=== PATIENT | male | born 1975 | race Caucasian/White ===

== ENCOUNTER 2016-08-18 12:51 | Emergency (ER) | payer BC ==
[2016-08-18 13:21] VITALS: RESP 18
--- NOTE | 2016-08-18 14:30 | ED ---
General Adult HPI - General Chief complaint: Recheck/Abnormal Lab/Rx Stated complaint: Arm/Hand Numbness Time Seen by Provider: 08/18/16 13:24 Source: patient, RN notes reviewed Mode of arrival: ambulatory Limitations: no limitations - History of Present Illness Initial comments: 41-year-old male presents emergency department recheck abnormal symptoms. Patient states that he's been having on and off issues for last few months and which she states she gets a warm feeling starts becoming very shaky and very anxious. Patient states he gets some numbness in his hands. Patient states that occasionally feels like his heart is racing and skipping a beat. Patient states that his been having episodes more frequently. Patient states originally thought it was related to a singular stop it states it made symptoms worse. Patient saw primary care physician yesterday who ordered lab work, EKG and stress test. Patient is pending lab work EKG within normal limits. Patient states he has no known cardiac issues. Patient states he has seasonal ALLERGIES and which she takes Singulair for. Patient states he does not have anxiety that he states in the last month symptoms have gotten much worse and states this is from and switching shifts to working days compared afternoons. He states his home more often with the kids, family states that he does notice that he is stressed. Patient denies any depression or suicidal thoughts. Patient has not taken any medications for this. - Related Data Home Medications Medication Instructions Recorded Confirmed Albuterol Inhaler [Ventolin Hfa 1 - 2 puff INHALATION Q6HR PRN 08/18/16 08/18/16 Inhaler] Albuterol Nebulized [Ventolin 2.5 mg INHALATION Q4H PRN 08/18/16 08/18/16 Nebulized] Fish Oil/Dha/Epa [Fish Oil 1,200 1 cap PO DAILY 08/18/16 08/18/16 mg Fish Oil] Mometasone/Formoterol [Dulera 200 1 puff INHALATION BID 08/18/16 08/18/16 Mcg/5 Mcg Inhaler] Montelukast [Singulair] 10 mg PO HS 08/18/16 08/18/16 Multivitamin [Men's Multi-Vitamin] 1 tab PO DAILY 08/18/16 08/18/16 Previous Rx's Medication Instructions Recorded ALPRAZolam [Xanax] 0.5 mg PO BID PRN #14 tablet 08/18/16 Allergies Allergy/AdvReac Type Severity Reaction Status Date / Time No Known Allergies Allergy Verified 08/18/16 13:49 Review of Systems ROS Statement: Those systems with pertinent positive or pertinent negative responses have been documented in the HPI. ROS Other: All systems not noted in ROS Statement are negative. Past Medical History Past Medical History: Asthma History of Any Multi-Drug Resistant Organisms: None Reported Past Surgical History: Hernia Repair Additional Past Surgical History / Comment(s): rotater cuff knee Past Psychological History: No Psychological Hx Reported Smoking Status: Never smoker Past Alcohol Use History: Rare Past Drug Use History: None Reported General Exam Limitations: no limitations General appearance: alert, in no apparent distress Head exam: Present: atraumatic, normocephalic, normal inspection Eye exam: Present: normal appearance, PERRL, EOMI. Absent: scleral icterus, conjunctival injection, periorbital swelling ENT exam: Present: normal exam, normal oropharynx, mucous membranes moist Neck exam: Present: normal inspection, full ROM. Absent: tenderness, meningismus, lymphadenopathy Respiratory exam: Present: normal lung sounds bilaterally. Absent: respiratory distress, wheezes, rales, rhonchi, stridor Cardiovascular Exam: Present: regular rate, normal rhythm, normal heart sounds. Absent: systolic murmur, diastolic murmur, rubs, gallop, clicks GI/Abdominal exam: Present: soft, normal bowel sounds. Absent: distended, tenderness, guarding, rebound, rigid Neurological exam: Present: alert, oriented X3, CN II-XII intact Skin exam: Present: warm, dry, intact, normal color. Absent: rash Course Vital Signs 08/18/16 08/18/16 13:17 16:00 Temperature 98.3 F Pulse Rate 93 69 Respiratory 18 18 Rate Blood Pressure 138/81 111/79 O2 Sat by Pulse 98 98 Oximetry - Reevaluation(s) Reevaluation #1: 08/18/16 14:30 We did attempt to contact Dr. Bell's office for lab results. Has been more than 45 minutes with no results. I did explain this patient and which withdrawal lab work at this time pending results coming from Dr. Bell's office. Medical Decision Making - Medical Decision Making 41-year-old male presented for anxiety type symptoms. Patient lab work within normal limits. We were unable to obtain labs from Dr. Bell's office. Patient will be discharged with Xanax at this time to take if symptoms arise. Return parameters were discussed. - Lab Data Result diagrams: 08/18/16 14:55 08/18/16 14:55 Lab Results 08/18/16 08/18/16 08/18/16 Range/Units 14:55 14:55 14:55 WBC 7.4 (3.8-10.6) k/uL RBC 5.21 (4.30-5.90) m/uL Hgb 15.2 (13.0-17.5) gm/dL Hct 44.5 (39.0-53.0) % MCV 85.4 (80.0-100.0) fL MCH 29.2 (25.0-35.0) pg MCHC 34.2 (31.0-37.0) g/dL RDW 12.8 (11.5-15.5) % Plt Count 287 (150-450) k/uL Neutrophils % 72 % Lymphocytes % 17 % Monocytes % 5 % Eosinophils % 3 % Basophils % 1 % Neutrophils # 5.3 (1.3-7.7) k/uL Lymphocytes # 1.2 (1.0-4.8) k/uL Monocytes # 0.4 (0-1.0) k/uL Eosinophils # 0.2 (0-0.7) k/uL Basophils # 0.0 (0-0.2) k/uL Sodium 142 (137-145) mmol/L Potassium 4.5 (3.5-5.1) mmol/L Chloride 102 (98-107) mmol/L Carbon Dioxide 27 (22-30) mmol/L Anion Gap 13 mmol/L BUN 11 (9-20) mg/dL Creatinine 0.82 (0.66-1.25) mg/dL Est GFR (MDRD) Af Amer >60 (>60 ml/min/1.73 sqM) Est GFR (MDRD) Non-Af >60 (>60 ml/min/1.73 sqM) Glucose 104 H (74-99) mg/dL Calcium 9.9 (8.4-10.2) mg/dL Total Bilirubin 0.7 (0.2-1.3) mg/dL AST 21 (17-59) U/L ALT 38 (21-72) U/L Alkaline Phosphatase 57 (38-126) U/L Troponin I <0.012 (0.000-0.034) ng/mL Total Protein 7.6 (6.3-8.2) g/dL Albumin 4.7 (3.5-5.0) g/dL TSH 1.280 (0.465-4.680) mIU/L Disposition Clinical Impression: Panic attack Disposition: HOME SELF-CARE Condition: Stable Instructions: Anxiety (ED) Additional Instructions: Please return to the Emergency Department if symptoms worsen or any other concerns. Prescriptions: ALPRAZolam [Xanax] 0.5 mg PO BID PRN #14 tablet PRN Reason: Anxiety Time of Disposition: 16:32
[2016-08-18 15:24] LABS: Basophils % (A) 1 %; CH 29.9; CHCM 35.1; Eosinophils # (A) 0.2 k/uL (0-0.7); Eosinophils % (A) 3 %; HCT 44.5 % (39.0-53.0); HDW 2.63; HGB 15.2 gm/dL (13.0-17.5); Luc # (Auto) 0.18; Luc % (Auto) 2; Lymphocytes # (A) 1.2 k/uL (1.0-4.8); Lymphocytes % (A) 17 %; MCH 29.2 pg (25.0-35.0); MCHC 34.2 g/dL (31.0-37.0); MCV 85.4 fL (80.0-100.0); Mean Platelet Volume 7.2; Monocytes # (A) 0.4 k/uL (0-1.0); Monocytes % (A) 5 %; Neutrophils # (A) 5.3 k/uL (1.3-7.7); Neutrophils % (A) 72 %; RBC 5.21 m/uL (4.30-5.90); RDW 12.8 % (11.5-15.5); WBC 7.4 k/uL (3.8-10.6)
[2016-08-18 15:27] LABS: ALT 38 U/L (21-72); AST 21 U/L (17-59); Alkaline Phosphatase 57 U/L (38-126); Anion Gap 13 mmol/L; Blood Urea Nitrogen 11 mg/dL (9-20); Calcium 9.9 mg/dL (8.4-10.2); Carbon Dioxide 27 mmol/L (22-30); Chloride 102 mmol/L (98-107); Glucose 104 mg/dL (74-99); Non-African American GFR(MDRD) >60 (>60 ml/min/1.73 sqM); Potassium 4.5 mmol/L (3.5-5.1); Sodium 142 mmol/L (137-145); Total Bilirubin 0.7 mg/dL (0.2-1.3); Total Protein 7.6 g/dL (6.3-8.2)
[2016-08-18 16:01] VITALS: PULSE 69
[2016-08-18 16:50] VITALS: BP 115/80; TEMP 97
== END 2016-08-18 16:50 | disposition home or self-care (01) ==
LOC: EC 12:51
DX: F41.0 Panic disorder [episodic paroxysmal anxiety] (principal); J45.909 Unspecified asthma, uncomplicated
CPT/HCPCS: 36415; 80053; 84443; 84484; 85025; 99284

== ENCOUNTER → 2016-08-28 | Outpatient (CLI) | payer BC ==
--- NOTE | 2016-08-29 10:30 | ECHOF ---
Referral Reason:R00.2 Palpitations MEASUREMENTS -------- HEIGHT: 182.9 cm WEIGHT: 83.9 kg BP: RVIDd: 2.8 cm (< 3.3) IVSd: 1.0 cm (0.6 - 1.1) LVIDd: 4.4 cm (3.9 - 5.3) LVPWd: 1.3 cm (0.6 - 1.1) IVSs: 1.6 cm LVIDs: 2.8 cm LVPWs: 1.7 cm Ao Diam: 3.2 cm (2.0 - 3.7) AV Cusp: 2.1 cm (1.5 - 2.6) LA Diam: 2.5 cm (2.7 - 3.8) MV EXCURSION: 7.809 mm (> 18.000) MV EF SLOPE: 98 mm/s (70 - 150) EPSS: 0.7 cm MV E Rah: 0.74 m/s MV DecT: 228 ms MV A Rah: 0.60 m/s MV E/A Ratio: 1.23 RAP: 5.00 mmHg RVSP: 18.11 mmHg FINDINGS -------- Sinus rhythm. This was a technically good study. Left ventricular wall thickness is normal. Overall left ventricular systolic function is normal with, an EF between 55 - 60 %. The right ventricle is normal in size and function. The left atrium is normal in size. The right atrium is normal in size. The aortic valve is trileaflet, and appears structurally normal. No aortic stenosis or regurgitation. There is trace mitral regurgitation. Trace tricuspid regurgitation present. The right ventricular systolic pressure, as measured by Doppler, is 18.11mmHg. Pulmonic valve appears structurally normal. The aortic root size is normal. The pericardium is normal. CONCLUSIONS -------- 1. Sinus rhythm. 2. Trace tricuspid regurgitation present. 3. The right ventricular systolic pressure, as measured by Doppler, is 18.11mmHg. 4. Pulmonic valve appears structurally normal. 5. The aortic root size is normal. 6. The pericardium is normal. 7. This was a technically good study. 8. Left ventricular wall thickness is normal. 9. Overall left ventricular systolic function is normal with, an EF between 55 - 60 %. 10. The right ventricle is normal in size and function. 11. The left atrium is normal in size. 12. The right atrium is normal in size. 13. The aortic valve is trileaflet, and appears structurally normal. No aortic stenosis or regurgitation. 14. There is trace mitral regurgitation. AUTOMATION ANALYST: Rachna Pedro RDCS
== END | disposition home or self-care (01) ==
LOC: RADNMMAIN 12:48
PROVIDERS: ATTEND Family Medicine
DX: I08.1 Rheumatic disorders of both mitral and tricuspid valves (principal)
CPT/HCPCS: 93225; 93226; 93306

== ENCOUNTER → 2016-09-06 | Outpatient (CLI) | payer BC ==
--- NOTE | 2016-09-06 11:57 | EST ---
DATE OF SERVICE: 09/06/2016 AGE: 41Y SEX: M HT: 72" WT: lbs. Protocol Tommie: X Other: Stress Stage: IV Dur. of Exercise: 10:29 *Heart Rate Blood Pressure *Rest: 98 Rest: 143/89 * *Max. Achieved: 176 Maximum BP: 166/89 85% PMHR: 159 100% PMHR: 179 *METS: 12.8 INDICATIONS: Chest pain. MEDICATIONS: Dulera, albuterol, Singulair. STRESS DATA: Pretesting physical examination showed heart rate of 98, pressure is 143/89 mmHg. Baseline EKG showed sinus rhythm. The patient exercised on the treadmill according to Tommie protocol for a total of 10 minutes and 29 seconds and achieved 12.8 METs. The max heart rate was 176, which is about 98% of maximum predicted heart rate. Maximum blood pressure was 166/89 mmHg. Clinically, the patient did not have any symptoms of chest or discomfort and the EKG did not show any significant ST or T-wave abnormalities consistent with ischemia. CONCLUSION: 1. Excellent exercise capacity. 2. Normal EKG in response to exercise. 3. Normal exercise treadmill stress test for the patient.
== END | disposition home or self-care (01) ==
LOC: RADNMMAIN 10:30
PROVIDERS: ATTEND Family Medicine
DX: R07.9 Chest pain, unspecified (principal)
CPT/HCPCS: 93017

== ENCOUNTER → 2017-08-16 | Outpatient (CLI) | payer BC ==
--- NOTE | 2017-08-16 18:48 | XR ---
EXAMINATION TYPE: XR chest 2V DATE OF EXAM: 08/16/2017 COMPARISON: 05/20/2009 HISTORY: Difficulty breathing and chest pain TECHNIQUE: Frontal and lateral views of the chest are obtained. FINDINGS: Heart and mediastinum are normal. Lungs are clear. Diaphragm is normal. Bony thorax appear s normal. IMPRESSION: Normal chest. No change.
== END | disposition home or self-care (01) ==
LOC: RADXRMAIN 17:04
PROVIDERS: ATTEND Family Medicine
DX: R07.9 Chest pain, unspecified (principal)
CPT/HCPCS: 71046

== ENCOUNTER 2017-11-21 08:17 | Day surgery (SDC) | payer BC ==
[2017-11-16 15:32] VITALS: BMI 23.1
--- NOTE | 2017-11-21 08:11 | P.OP ---
Date of Procedure: 11/21/17 Procedure(s) Performed: Preoperative Dx: Dysphagia, history of esophageal stricture Postoperative Dx: Recurrent esophageal stricture/distal esophagitis/hiatal hernia Procedure: EGD with Bx and dilation of esophageal stricture Anesthesia: Sedation Endoscopist: Dr. Woods Specimens: GE junction/stricture, antrum Endoscopic Procedure: The patient was on the endoscopy table in the left decubitus position. The Olympus gastroscope was inserted into the oropharynx and passed under direct visualization to the distal esophagus. The patient had evidence of scarring of the mucosa but he was also found to have a tight stricture in the distal esophagus. I would estimate the luminal diameter at that location to be approximately 7 mm. I was able to advance a 8-10 mm balloon through the stricture site. Insufflation gradually took place holding the balloon at 8, 9, and 10 mm for 1 minute increments. Minimal bleeding was seen during this. The 8 mm balloon actually felt relatively loose after inflating. I was then able to pass through the stricture site into the stomach and into the duodenum. No abnormalities of the duodenum were identified. The stomach was relatively normal during his well. I did take a biopsy of the antrum. Retroflexion revealed a small hiatal hernia. At the GE junction is where the stricture was located and several biopsies of the stricture site were taken. The proximal esophagus appeared normal. The patient was then taken to the recovery room in stable condition per anesthesia guidelines. Recommendations: Await biopsy results. Continue antiacid therapy. Will require follow-up EGD with dilation in 1 month. Disposition: observation
[~2017-11-21 08:17] MED LIST: LACTATED RINGERS 1,000 ML IV SCH
[2017-11-21 08:54] VITALS: RESP 18; TEMP 98.3
[2017-11-21] MEDS ORDERED: LIDOCAINE 1% 20 ML VIAL (10MG/ML) FOR IV START INTRADERMA ONE (08:54)
[2017-11-21] MEDS ORDERED: PROPOFOL 10 MG/ML 20 ML VIAL IV ONE (09:07)
[2017-11-21] MEDS ORDERED: GLYCOPYRROLATE 0.2 MG/ML 2 ML VIAL ONE (09:07)
[2017-11-21] MEDS ORDERED: LIDOCAINE 1% INJ 10MG/ML (20 ML MDV) ONE (09:07)
--- NOTE | 2017-11-21 09:13 | P.GSHP ---
History of Present Illness H&P Date: 11/21/17 Chief Complaint: Dysphagia Patient known from our office. Was last seen in September. Has complaints of some dysphagia symptoms. Some asthma related symptoms as well. No recent upper endoscopy. Ran out of his antiacids about 3 weeks ago. Past Medical History Past Medical History: Asthma, GERD/Reflux History of Any Multi-Drug Resistant Organisms: None Reported Past Surgical History: Hernia Repair Additional Past Surgical History / Comment(s): RT rotater cuff, RT knee SX FOR BONE SPUR, EXPLORATORY SX FOR UNDESCENDED TESTICLE Past Anesthesia/Blood Transfusion Reactions: No Reported Reaction Past Psychological History: No Psychological Hx Reported Smoking Status: Former smoker Past Alcohol Use History: Rare Additional Past Alcohol Use History / Comment(s): quit smoking 2016, smoked less than 1/2ppd from age 20 Past Drug Use History: None Reported - Past Family History Mother Family Medical History: No Reported History Medications and Allergies Home Medications Medication Instructions Recorded Confirmed Type Albuterol Inhaler [Ventolin Hfa 1 - 2 puff INHALATION Q6HR PRN 08/18/16 History Inhaler] Albuterol Nebulized [Ventolin 2.5 mg INHALATION Q4H PRN 08/18/16 11/16/17 History Nebulized] Fish Oil/Dha/Epa [Fish Oil 1,200 1 cap PO DAILY 08/18/16 11/16/17 History mg Fish Oil] Montelukast [Singulair] 10 mg PO HS 08/18/16 11/16/17 History Multivitamin [Men's Multi-Vitamin] 1 tab PO DAILY 08/18/16 11/16/17 History Allergies Allergy/AdvReac Type Severity Reaction Status Date / Time No Known Allergies Allergy Verified 11/16/17 15:26 Surgical - Exam Vital Signs Temp Pulse Resp BP Pulse Ox 98.3 F 64 18 120/80 97 11/21/17 08:51 11/21/17 08:51 11/21/17 08:51 11/21/17 08:51 11/21/17 08:51 Physical exam: General: Well-developed, well-nourished HEENT: Normocephalic, sclerae nonicteric Abdomen: Nontender, nondistended Extremities: No edema Neuro: Alert and oriented Assessment and Plan (1) Dysphagia Narrative/Plan: Will proceed with upper endoscopy at this time. Current Visit: Yes Status: Acute Code(s): R13.10 - DYSPHAGIA, UNSPECIFIED SNOMED Code(s): 83190060
--- NOTE | 2017-11-21 09:22 | P.PCN ---
Date of Procedure: 11/21/17 Procedure(s) Performed: Preoperative Dx: Dysphagia Postoperative Dx: Mild gastritis, mild distal esophagitis, whitish plaques midesophagus rule out fungal esophagitis Procedure: EGD with Bx Anesthesia: Sedation Endoscopist: Dr. Woods Specimens: Antrum, GE junction, midesophagus Endoscopic Procedure: The patient was on the endoscopy table in the left decubitus position. The Olympus gastroscope was inserted into the oropharynx and passed under direct visualization to the region of the third portion of the duodenum. From that point the scope was slowly withdrawn inspecting all surfaces carefully. There were no neoplastic inflammatory or polypoid lesions throughout the duodenum. The pylorus was widely patent. The stomach was carefully inspected. There was minimal gastritis present. A biopsy of the antrum took place to rule out H. pylori. Retroflexion revealed a normal hiatus. The esophagus was then carefully examined. There was mild esophagitis present right at the GE junction circumferentially. This did not appear to be forming a definitive stricture. A biopsy of the esophagitis took place. Throughout the remainder of the esophagus there were small whitish plaques seen scattered. I suspect possible fungal esophagitis. Biopsies were taken of these areas. The patient was then taken to the recovery room in stable condition per anesthesia guidelines. Recommendations: Await biopsies results. Empirically begin nystatin treatment. Resume antiacids.
[2017-11-21 10:00] VITALS: BP 113/80; PULSE 67
== END 2017-11-21 10:15 | disposition home or self-care (01) ==
LOC: ORWHC2ENDO 08:17
PROVIDERS: ATTEND Surgery
DX: K29.50 Unspecified chronic gastritis without bleeding (principal); B37.81 Candidal esophagitis; J45.909 Unspecified asthma, uncomplicated; Z79.899 Other long term (current) drug therapy; Z87.891 Personal history of nicotine dependence
CPT/HCPCS: 88305; 43239; J2001; J2704

== ENCOUNTER → 2020-10-01 | Outpatient (CLI) | payer BC ==
--- NOTE | 2020-10-01 12:35 | XR ---
EXAMINATION TYPE: XR abdomen complete w decub DATE OF EXAM: 10/01/2020 CLINICAL HISTORY: Left lower quadrant pain for weeks, history of hernia surgery TECHNIQUE: Supine, upright, and left side down lateral decubitus views of the abdomen are obtained. COMPARISON: None. FINDINGS: Scattered gas is seen in non-distended stomach and small bowel loops. Gas and fecal mater ial is seen in non-distended colon. There is no visceromegaly, pneumoperitoneum, or abnormal calcif ication appreciated. The lung bases are clear. Slight scoliotic curvature of the lumbosacral junctio n with sacralized left L5 segment. IMPRESSION: Overall nonobstructive bowel gas pattern.
== END ==
LOC: RADXRMAIN 10:07
PROVIDERS: ATTEND Nurse Practitioner
DX: R10.32 Left lower quadrant pain (principal)
CPT/HCPCS: 74021

== ENCOUNTER → 2021-07-15 | Outpatient (CLI) | payer BC ==
[~2021-07-15] MED LIST changes: +BAMLANIVIMAB (EUA) 700 MG, ETESEVIMAB (EUA) 1,400 MG in SODIUM CHLORIDE 0.9% 50 ML IVPB ONE; -LACTATED RINGERS 1,000 ML IV SCH; +SODIUM CHLORIDE 0.9% 50 ML IVPB ONE; +SODIUM CHLORIDE 0.9% 500 ML 500 ML in EMPTY BAG 1 BAG IV PRN
[2021-07-15 13:52] VITALS: RESP 16; TEMP 98.4
[2021-07-15 14:46] VITALS: BP 131/91; PULSE 86
== END ==
LOC: PROCWHC3 13:45
PROVIDERS: ATTEND Family Medicine
DX: U07.1 COVID-19 (principal); E66.9 Obesity, unspecified; J45.909 Unspecified asthma, uncomplicated; Z68.25 Body mass index [BMI] 25.0-25.9, adult; Z87.891 Personal history of nicotine dependence
CPT/HCPCS: 96360; J3490; M0245

== ENCOUNTER → 2023-09-19 | Outpatient (CLI) | payer BC ==
--- NOTE | 2023-09-19 12:18 | US ---
EXAMINATION TYPE: US abdomen complete DATE OF EXAM: 09/19/2023 COMPARISON: NONE CLINICAL INDICATION: Male, 48 years old with history of R10.9 ABD PAIN; Patient states epigastric pa in that comes and goes. No other pain or symptoms. TECHNIQUE: Multiple sonographic images of the abdomen are obtained. FINDINGS: EXAM MEASUREMENTS: Liver Length: 15.2 cm Gallbladder Wall: 0.3 cm CBD: 0.2 cm Spleen: 12.6 cm Right Kidney: 11.0 x 4.7 x 5.1 cm Left Kidney: 11.8 x 5.3 x 5.1 cm AIRPLANE TUBE BUILDER NOTES: *Limited visualization due to overlying bowel gas Pancreas: Obscured by bowel gas Liver: There is a 3.1 x 2.1 x 3.4cm anechoic lesion seen within the left liver lobe. Right lobe appe ars WNL Gallbladder: Multiple, small hyperechoic areas seen to be projecting from GB wall. Largest measures 0.5 x 0.5 x 0.4cm. Evidence for sonographic Acevedo's sign: No CBD: wnl as best seen Spleen: wnl as best seen Right Kidney: No hydronephrosis or masses seen as best visualized Left Kidney: No hydronephrosis or masses seen as best visualized Upper IVC: wnl as best visualized Abd Aorta: wnl as best visualized IMPRESSION: 1. Scattered gallbladder polyps measuring up to 5 mm in diameter. No evidence of cholelithiasis or ch olecystitis. 2. No evidence of biliary ductal dilation. 3. No evidence of hydronephrosis.
--- NOTE | 2023-09-19 15:41 | US ---
EXAMINATION TYPE: US groin LT DATE OF EXAM: 09/19/2023 COMPARISON: NONE CLINICAL INDICATION: Male, 48 years old with history of Z98.890 OTHER SPECIFIED POSTPROCEDURAL R10.9; Patient states hx of left inguinal hernia repair 14 years ago. Patient is having on and off LLQ pain . TECHNIQUE: Scanned left groin, AOC FINDINGS: Field Property Loss Specialist notes: Left groin AOC scanned, few prominent lymph nodes seen. Probable scar t issue noted. No distinct evidence of inguinal hernia on today's exam. Right groin scanned for comparison. IMPRESSION: Real-time scanning by the television schedule coordinator shows a shadowing area at the left groin area of concern which may reflect scar tissue in the setting of previous surgery. No abnormal bulge or moving tissue is yissel ntified by the television schedule coordinator upon Valsalva maneuver. A few prominent but nonenlarged lymph nodes are no bailey, likely reactive/post inflammatory.
== END | disposition home or self-care (01) ==
LOC: RADUSWWP 06:53
PROVIDERS: ATTEND Family Medicine
DX: K82.4 Cholesterolosis of gallbladder (principal); Z98.890 Other specified postprocedural states
CPT/HCPCS: 76700

== ENCOUNTER → 2023-10-05 | Outpatient (CLI) | payer BC ==
--- NOTE | 2023-10-05 14:12 | CT ---
EXAMINATION: CT ABDOMEN AND PELVIS WITH IV CONTRAST DATE OF EXAMINATION: 10/05/2023. COMPARISON: None available. INDICATION: Left-sided abdominal pain. PROCEDURE: Axial CT of the abdomen and pelvis was performed with contrast and sagittal and coronal reformatted images were performed. CT dose lowering techniques were used, to include: automated expos ure control, adjustment for patient size, and/or use of iterative reconstruction. 100 mL of Isovue 30 0 was given intravenously. FINDINGS: LOWER CHEST : The visualized lung bases are clear. There are no pleural or pericardial effusions. ABDOMEN: Liver and Biliary system: Several cysts and subcentimeter hypodensities are seen within the liver th at are too small to fully characterize. Adrenal glands: Normal. Kidneys and ureters: Normal. Spleen: Normal. Pancreas: Normal. Gallbladder: Normal. Lymph nodes, Peritoneum and mesentery: There is no mesenteric or retroperitoneal lymphadenopathy. Gastrointestinal tract: There are no dilated loops of bowel or free intraperitoneal air. The appe ndix is normal. Aorta/IVC: No aortic aneurysm. IVC normal. Abdominal wall: Normal. PELVIS: Fluid: There is no free fluid in the pelvis. Lymph Nodes: There is no pelvic or inguinal lymphadenopathy.. Urinary bladder: Normal. BONES: There are no osseous destructive lesions.. ADDITIONAL SIGNIFICANT FINDINGS: None. IMPRESSION: No acute process within the abdomen or pelvis.
== END | disposition home or self-care (01) ==
LOC: RADCTMAIN 11:47
PROVIDERS: ATTEND Family Medicine
DX: K76.9 Liver disease, unspecified (principal); R10.9 Unspecified abdominal pain
CPT/HCPCS: 74178; Q9967

== ENCOUNTER → 2023-10-31 | Outpatient (CLI) | payer BC ==
[2023-10-31 15:51] LABS: ALT 26 U/L (10-49); AST 20 U/L (14-35); Albumin 4.7 g/dL (3.8-4.9); Albumin/Globulin Ratio 1.88 Ratio (1.60-3.17); Alkaline Phosphatase 66 U/L (41-126); Bilirubin, Conjugated <0.20 mg/dL (0.20-0.40); Bilirubin,Unconjugated >0.30 mg/dL (0.20-1.00); Globulin 2.5 g/dL (1.6-3.3); Total Bilirubin 0.5 mg/dL (0.3-1.2); Total Protein 7.2 g/dL (6.2-8.2)
== END | disposition home or self-care (01) ==
LOC: LABWHC1 08:42
PROVIDERS: ATTEND Nurse Practitioner Family
DX: K76.89 Other specified diseases of liver (principal)
CPT/HCPCS: 36415; 80076; 82105

== ENCOUNTER → 2024-07-28 | Outpatient (CLI) | payer BC ==
--- NOTE | 2024-07-28 23:33 | US ---
EXAMINATION TYPE: US liver DATE OF EXAM: 07/28/2024 COMPARISON: US(09/19/2023) CLINICAL INDICATION: Male, 49 years old with history of K76.89 OTHER SPECIFIED DISEASES OF LIVER Known Liver Cyst TECHNIQUE: Grayscale and color Doppler imaging of the right upper quadrant. FINDINGS: EXAM MEASUREMENTS: Liver Length: 15.5 cm Gallbladder Wall: 0.3 cm CBD: 0.3 cm, color Doppler imaging was utilized to isolate the common bile duct for measurement. Right Kidney: 11.5x5.4x5.2 cm LINE COOK NOTES: Pancreas: Tail obscured by overlying bowel gas Liver: Anechoic structure again seen from prior US(09/19/2023): 2.9 x 2.1 x 3.6 cm. Previous measurement 3.1 x 2.1 x 3.4 cm. Gallbladder: Multiple small hyperechoic areas seen projecting from GB wall Evidence for sonographic Acevedo's sign: No CBD: wnl Right Kidney: No hydronephrosis or masses seen IMPRESSION: 1. Hepatic cyst. 2. Multiple gallbladder polyps [facility], , 07/28/2024 11:30 PM
== END | disposition home or self-care (01) ==
LOC: RADUSWWP 07:26
PROVIDERS: ATTEND Internal Medicine Gastroenterology
DX: K76.89 Other specified diseases of liver (principal); K82.4 Cholesterolosis of gallbladder
CPT/HCPCS: 76705